=== PATIENT | female | born 1985 | race African-American/Black ===

== ENCOUNTER 2017-08-11 14:46 | Emergency (ER) | payer OTHER ==
[2017-08-11 14:49] VITALS: BP 141/93; PULSE 79; TEMP 98.8; BMI 23.3
[2017-08-11] MEDS ORDERED: METOCLOPRAMIDE HCL INJECTION 10 MG/2 ML VIAL IVPUSH ONE (15:19)
[2017-08-11] MEDS ORDERED: SODIUM CHLORIDE 0.9% 1000 ML INFUS.BAG IV ONE (15:19)
[2017-08-11] MEDS ORDERED: KETOROLAC TROMETHAMINE 15 MG/ML VIAL IVPUSH ONE (15:19)
[2017-08-11] MEDS ORDERED: METOCLOPRAMIDE HCL INJECTION 10 MG/2 ML VIAL ONE (15:40)
[2017-08-11] MEDS ORDERED: KETOROLAC TROMETHAMINE 15 MG/ML VIAL ONE (15:40)
--- NOTE | 2017-08-11 15:42 | PDOC ---
History of Present Illness - General Chief Complaint: Migraine Headache Stated Complaint: Migraine Headache Time Seen by Provider: 08/11/17 14:58 - History of Present Illness Initial Comments: 08/11/17 15:22 CHIEF COMPLAINT: headache HISTORY OF PRESENT ILLNESS: 32 yo F with hx of migraines presents to [facility] with migraine x 4 days. Patient states she used to have migraines and [place] and then [place]ra[place] stopped. She states she didn't have migraines since 2006 until this past month, and now has had multiple in the past few weeks. She reports one episode of migraine in which she felt weak and "couldn't leave the house" because light made my head hurt so bad. No recent travel or sick contacts. PAST MEDICAL HISTORY: Denies past medical history FAMILY HISTORY: Denies SOCIAL HISTORY: Denies tobacco, alcohol, illicit drug use. SURGICAL HISTORY: Denies ALLERGIES: No known drug allergies REVIEW OF SYSTEMS General/Constitutional: Denies fever or chills. Denies weakness, weight change. HEENT: Photophobia. Denies ear pain or discharge. Denies sore throat. Cardiovascular: Denies chest pain or shortness of breath. Respiratory: Denies cough, wheezing, or hemoptysis. Gastrointestinal: Denies nausea, vomiting, diarrhea or constipation. Denies rectal bleeding. Genitourinary: Denies dysuria, frequency, or change in urination. Musculoskeletal: Denies joint or muscle swelling or pain. Denies neck or back pain. Skin and breasts: Denies rash or easy bruising. Neurologic: Recurrent migraines. Denies vertigo, loss of consciousness, or loss of sensation. PHYSICAL EXAM General Appearance: Well-appearing, appropriately dressed. No apparent distress. HEENT: EOMI, PERRLA, normal ENT inspection, normal voice, TMs normal, pharynx normal. No conjunctival pallor. No photophobia, scleral icterus. Respiratory/Chest: Lungs CTAB. Cardiovascular: RRR. S1, S2. Musculoskeletal/Extremities: Normal inspection. FROM of all extremities, normal capillary refill. Pelvis Stable. No CVA tenderness. No tenderness to extremities, pedal edema, swelling, erythema or deformity. Integumentary: Appropriate color, dry, warm. No cyanosis, erythema, jaundice or rash Neurologic: peoplesoft developer II-XII intact. Fully oriented, alert. Appropriate mood/affect. Motor strength 5/5. No appreciable EOM palsy, facial droop or sensory deficit. A&Ox3, follow commands, respond appropriately CN2-12: conjugate gaze, pupil round, equal and reactive to light. Visual field full to confrontation. EOMI without nystagmus, pursuit is smooth without saccade. Facial sensation and muscle activation intact bilaterally. Hearing intact bilaterally. Palate elevate symmetrically. Shoulder shrug and neck turn full strength. Tongue protrude midline. Motor: UE and LE strength 5/5 throughout bilaterally. Muscle tone and bulk normal. Cerebellar: Rapid-alternating movement with regular rhythm without bradykinesia. Finger-nose test abnormal with overshoot. Gait narrow based. No shuffling. Full hip flexion and knee flexion. Negative Romberg No involuntary movement noted. No pronator drift. No clonus. Past History - Past Medical History Allergies/Adverse Reactions: Allergies Allergy/AdvReac Type Severity Reaction Status Date / Time aspirin Allergy Severe Difficulty Verified 08/11/17 14:49 Breathing NUTS Allergy Severe Difficulty Uncoded 08/11/17 14:49 Breathing Home Medications: Ambulatory Orders Acetaminophen/Caffeine [Excedrin Tension Headache Cplt] 1 each PO TID PRN #21 tablet 08/11/17 Anemia: Yes Asthma: Yes Cancer: No Cardiac Disorders: Yes (sinus tachycardia) CVA: No Dementia: No Diabetes: No GI Disorders: No Disorders: No HTN: No Hypercholesterolemia: No Liver Disease: No Seizures: No Thyroid Disease: No Other medical history: MIGRAINES - Surgical History Cholecystectomy: Yes - Reproductive History (#): 3 Para: 1 Cervical CA: No Dysfunctional Uterine Bleeding: No Ectopic : No Endometrial CA: No Polycystic Ovaries: No Tubal Ligation: No Spontaneous : 1 - Immunization History Immunization Up to Date: No - Suicide/Smoking/Psychosocial Hx Smoking Status: No Smoking History: Never smoked Have you smoked in the past 12 months: No Number of Cigarettes Smoked Daily: 0 Hx Alcohol Use: No Drug/Substance Use Hx: No Substance Use Type: None Hx Substance Use Treatment: No *Physical Exam - Vital Signs Last Vital Signs Temp Pulse Resp BP Pulse Ox 98.8 F 79 18 141/93 100 08/11/17 14:46 08/11/17 14:46 08/11/17 14:46 08/11/17 14:46 08/11/17 14:46 Medical Decision Making - Medical Decision Making 08/11/17 15:42 32 yo F with hx of migraines presents to [facility] with migraine x 4 days. -UPreg -IVF, Toradol, Reglan, Benadryl 08/11/17 16:42 Patient reassessed; states she is feeling better at this time and is comfortable going home. Neuro exam unremarkable at this time. *DC/Admit/Observation/Transfer Diagnosis at time of Disposition: Migraine Qualifiers: Migraine type: unspecified Status migrainosus presence: without status migrainosus Intractability: not intractable Qualified Code(s): G43.909 - Migraine, unspecified, not intractable, without status migrainosus - Discharge Dispostion Disposition: HOME Condition at time of disposition: Improved Admit: No - Prescriptions Prescriptions: Acetaminophen/Caffeine [Excedrin Tension Headache Cplt] 1 each PO TID PRN #21 tablet PRN Reason: Headache - Referrals Referrals: Sheldon Sow MD [Primary Care Provider] - Dionicio Pierre MD [Staff Physician] - - Patient Instructions Printed Discharge Instructions: DI for Migraine Additional Instructions: Please take medications as prescribed. As discussed, you need to follow up with neurology for further evaluation of your recurrent headaches. If you develop any new headache that feels different from your migraines, or you feel a "thunderclap" headache, or you develop any change in vision, have weakness to one side, have any difficulty speaking or swallowing, or develop any new or worsening symptoms, please return to the ER immediately. - Post Discharge Activity Forms/Work/School Notes: Back to Work
== END 2017-08-11 16:34 | disposition home or self-care (01) ==
LOC: JERFT 14:46
PROC: 3E0333Z Introduction of Anti-inflammatory into Peripheral Vein, Percutaneous Approach (ICD-10-PCS; principal; 2017-08-11)
PROC: 3E033GC Introduction of Other Therapeutic Substance into Peripheral Vein, Percutaneous Approach (ICD-10-PCS; 2017-08-11)
PROC: 3E033GC Introduction of Other Therapeutic Substance into Peripheral Vein, Percutaneous Approach (ICD-10-PCS; 2017-08-11)
DX: G43.909 Migraine, unspecified, not intractable, without status migrainosus (principal)
CPT/HCPCS: 84703; 99281-25

== ENCOUNTER 2018-06-22 07:36 | Day surgery (SDC) | payer BC ==
[2018-06-21 15:53] VITALS: BMI 23.3
[~2018-06-22 07:36] MED LIST: ceFAZolin SODIUM 1 GM VIAL IVPB ONE
[2018-06-22] MEDS ORDERED: SODIUM CHLORIDE 0.9% P/F 10 ML VIAL IJ ONE ×2 (08:32→09:51)
[2018-06-22] MEDS ORDERED: ceFAZolin SODIUM 1 GM VIAL ONE ×2 (08:32→09:51)
[2018-06-22] MEDS ORDERED: PROPOFOL 20 ML ONE ×3 (08:41→10:09)
--- NOTE | 2018-06-22 09:10 | HP ---
Satellite [facility] - Chief Complaint Chief Complaint: left wrist pain - Past Medical History Allergies/Adverse Reactions: Allergies Allergy/AdvReac Type Severity Reaction Status Date / Time aspirin Allergy Severe Difficulty Verified 06/22/18 08:37 Breathing NUTS Allergy Severe Difficulty Uncoded 06/22/18 08:37 Breathing ...LMP: 06/02/18 Heme/Onc: Yes: Anemia - Current Medications Current Medications: Home Medications Medication Instructions Recorded Ascorbic Acid [Vitamin C] 1,000 mg PO DAILY 06/21/18 Metoprolol Succinate [Toprol Xl] 12.5 mg PO HS 06/21/18 Salmeterol/Fluticasone [Advair 1 inh PO BID 06/21/18 100Mcg/50Mcg -] Hydrocodone/Acetaminophen [[place] 1 each PO Q6H PRN #20 tablet MDD 4 06/22/18 5-325 Tablet] Satellite Physical Exam - Physical Examination Vital Signs: Vital Signs Period Temp Pulse Resp BP Sys/Bronson Pulse Ox Last 24 Hr 99.5 F-99.5 F 94-94 20-20 114-114/79-79 100 General Appearance: Well Nourished, Well Developed, Alert & Oriented x3 ENT: Clear Lung: Normal air movement Heart: Regular rate & rhythm Extremities: Other (left wrist- + ttp first dorsal compartment, + finkelsteins, nvi) Neurological: Intact, Alert, Oriented Satellite Impression/Plan - Impression/Plan Impression: left dequervains tenosynovitis Operative Procedure: left dequervains release Date to be Performed: 06/22/18
[2018-06-22] MEDS ORDERED: LIDOCAINE HCL 2% (20ML MULTI-DOSE VIAL) NR ONE (09:11)
[2018-06-22] MEDS ORDERED: MIDAZOLAM HCL 2 MG/2 ML SINGLE DOSE VIAL ONE (09:23)
[2018-06-22] MEDS ORDERED: ceFAZolin SODIUM 1 GM VIAL IVPB ONE (09:37)
[2018-06-22] MEDS ORDERED: BUPIVACAINE HCL/PF 0.5% (5MG/ML) 10 ML VIAL IJ ONE (09:45)
[2018-06-22] MEDS ORDERED: LIDOCAINE HCL 1%, 10 MG/ML (50 mL VIAL) IJ ONE (09:45)
[2018-06-22] MEDS ORDERED: METOPROLOL TARTRATE 5 MG/5 ML VIAL ONE (09:47)
[2018-06-22] MEDS ORDERED: DEXAMETHASONE SOD PHOSPHATE 4 MG/1 ML VIAL ONE (09:52)
--- NOTE | 2018-06-22 10:17 | OP ---
Operative Note - Note: Operative Date: 06/22/18 ([facility]) Pre-Operative Diagnosis: left dequervains tenosynovitis Operation: left dequervains release, tenosynovectomy Post-Operative Diagnosis: Same as Pre-op Surgeon: Colt Greco Anesthesia: Local, MAC Specimens Removed: tenosynovium Estimated Blood Loss (mls): 0 (tourniquet) Operative Report Dictated: Yes
[2018-06-22 12:36] VITALS: TEMP 98.3
[2018-06-22 14:13] VITALS: BP 123/71; PULSE 73
--- NOTE | 2018-06-22 15:45 | SPEC ---
DATE OF OPERATION: 06/22/2018 PREOPERATIVE DIAGNOSIS: Left De Quervains tenosynovitis. POSTOPERATIVE DIAGNOSIS: Left De Quervains tenosynovitis. PROCEDURE: Left De Quervains release and tendon sheath excision. SURGEON: Enio Hummel M.D. POULTRY PATHOLOGIST: Howie. ANESTHESIA: MAC with local injection of 15 mL of 0.5% Marcaine and 1% Lidocaine mix. ANESTHESIOLOGIST: Zane Basurto MD DRAINS: None. COMPLICATIONS: None. BLOOD LOSS: None. BLOOD GIVEN: None. SPECIMEN: Tendon sheath, left wrist. INDICATIONS: This patient is a 32-year-old female with preoperative diagnosis of recurrent severe left De Quervain's tenosynovitis. After understanding the potential risks, complications, alternatives and benefits of surgery versus nonsurgical treatment, the patient elected to undergo this procedure. PROCEDURE: Patient was brought to the operating room, peripheral IV placed, IV sedation given. One gram of IV Ancef was given. MAC anesthesia was induced. The tourniquet was applied to the left arm. The entire care was done under 3.8 loop magnification. The left upper extremity was prepped and draped in a sterile fashion. A longitudinal incision was marked out with a marking pen. A mix of 10 mL of 0.5% Marcaine, 1% Lidocaine were injected in and around the surgical area. The left upper extremity was then elevated, exsanguinated with an Esmarch bandage and the tourniquet inflated to 250 mmHg. A No. 15 scalpel blade was utilized to make a longitudinal incision. Subcutaneous hemostasis was achieved with a bipolar cautery. Dissection was done with a Littler scissors down to the first dorsal wrist compartment. Great care was taken to directly visualize and preserve all crossing sensory branches of the sensory nerve. Under direct visualization, the first dorsal wrist compartment was visualized and it was freed up from some adhesions with a [place] elevator. Next, a fresh No. 15 scalpel blade was utilized to open up the first dorsal wrist compartment, starting proximally and going distally both with the No. 15 scalpel blade and also with a Littler scissors. The anatomy was seen to have multiple slips of the abductor pollicis longus and the extensor pollicis brevis was in its own tendon tunnel. This was also released and the wall between the two excised. The roof of the tunnel was excised. This was all passed off the field as specimen. The volar lip of the first dorsal wrist compartment was preserved to prevent volar subluxation. The release was completed both distally and proximally in both compartments. I was able to bring out all slips through the wound with a Ragnell retractor and there were no obvious points of compression. The area was copiously irrigated and washed out, again explored and I didn't see any other abnormal tissue and therefore closure was begun. Undyed 4-0 Vicryl was used to close the deep dermal layer. Final skin reapproximation was done with a running subcuticular 4-0 Biosyn stitch. The area was then washed and dried, covered with Steri-Strips, 4 x 4's, fluffs between the fingers, Webril and Coban used to make a thumb spica Coban splint. The tourniquet was taken down after a total tourniquet time of 20 minutes. There were no complications during the case. The patient tolerated the procedure quite well and was brought to ambulatory recovery room in stable condition. ENIO HUMMEL M.D. [id number]
--- NOTE | 2018-06-24 13:37 | PATH ---
Surgical Pathology Report Patient Name: ISIDRO RIOS [facility]. Rec. #: [id number] /Age/Gender: 1985 (Age: 33) / F Account: [id number] Location: [facility] SURGICAL Taken: 06/22/2018 Received: 06/22/2018 Reported: 06/24/2018 Physicians: Colt Greco M.D. Specimen(s) Received LEFT HAND TENOSYNOVIAL FLUID Clinical History Left de Quervain's Final Diagnosis TENOSYNOVIUM, HAND, LEFT, DE QUERVAIN'S RELEASE: SCANT BENIGN DENSE FIBROCONNECTIVE TISSUE. Electronically Signed Rosina Quintero M.D. Gross Description Received in formalin labeled "left hand tenosynovial fluid," is a 1.3 x 1.1 x 0.2 cm aggregate of villarreal-yellow portions of soft tissue, consistent with tenosynovium. The specimen is entirely submitted in one cassette. /06/22/2018 saudi06/22/2018
== END 2018-06-22 14:10 | disposition home or self-care (01) ==
LOC: JASU-SURG 07:36
PROVIDERS: ATTEND Orthopaedic Surgery
PROC: 0LN60ZZ Release Left Lower Arm and Wrist Tendon, Open Approach (ICD-10-PCS; principal; 2018-06-22 09:00)
DX: M65.4 Radial styloid tenosynovitis [de Quervain] (principal)
CPT/HCPCS: 84703; 88304-TC; 94760

== ENCOUNTER 2018-07-13 08:48 | Day surgery (SDC) | payer BC, OTHER ==
[2018-07-12 10:44] VITALS: BMI 23.3
[2018-07-13] MEDS ORDERED: DEXAMETHASONE SOD PHOSPHATE/PF 10 MG/ML SDV ONE (09:00)
[2018-07-13] MEDS ORDERED: ROPIVACAINE HCL 0.5% 30ML VIAL ONE (09:00)
[2018-07-13] MEDS ORDERED: MIDAZOLAM HCL 2 MG/2 ML SINGLE DOSE VIAL ONE ×2 (09:01)
[2018-07-13] MEDS ORDERED: ONDANSETRON 4 MG/2 ML VIAL IVPUSH PRN (10:51)
[2018-07-13] MEDS ORDERED: oxyCODONE HCL 5 MG TABLET PO PRN (10:51)
[2018-07-13] MEDS ORDERED: LACTATED RINGERS SOLUTION 1,000 ML IV SCH (11:00)
--- NOTE | 2018-07-13 11:02 | HP ---
Satellite [facility] - Chief Complaint Chief Complaint: right shoulder pain History of Present Illness: right shoulder impingement syndrome History Source: Patient Limitations to Obtaining History: No Limitations - Past Medical History Allergies/Adverse Reactions: Allergies Allergy/AdvReac Type Severity Reaction Status Date / Time aspirin Allergy Severe Difficulty Verified 07/13/18 09:23 Breathing NUTS Allergy Severe Difficulty Uncoded 07/13/18 09:23 Breathing ...LMP: 06/27/18 Heme/Onc: Yes: Anemia - Current Medications Current Medications: Home Medications Medication Instructions Recorded Ascorbic Acid [Vitamin C] 1,000 mg PO DAILY 06/21/18 Metoprolol Succinate [Toprol Xl] 12.5 mg PO HS 06/21/18 Salmeterol/Fluticasone [Advair 1 inh PO BID 06/21/18 100Mcg/50Mcg -] Hydrocodone/Acetaminophen [[place] 1 each PO Q6H PRN #20 tablet MDD 4 06/22/18 5-325 Tablet] Satellite Physical Exam - Physical Examination Vital Signs: Vital Signs Period Temp Pulse Resp BP Sys/Bronson Pulse Ox Last 24 Hr 99 F 75 18 123/73 100 General Appearance: Well Nourished ENT: Clear Lung: Clear to auscultation Heart: Regular rate & rhythm Breasts: Soft Abdomen: Soft Extremities: No edema Satellite Impression/Plan - Impression/Plan Impression: right shoulder impingement syndrome Operative Procedure: right shoulder arthroscopy, decompression Date to be Performed: 07/13/18
[2018-07-13] MEDS ORDERED: PROPOFOL 20 ML ONE ×3 (11:06→11:51)
[2018-07-13] MEDS ORDERED: ROCURONIUM BROMIDE 50 MG/5 ML VIAL ONE (11:06)
[2018-07-13] MEDS ORDERED: DEXAMETHASONE SOD PHOSPHATE 4 MG/1 ML VIAL ONE ×2 (11:07→12:10)
[2018-07-13] MEDS ORDERED: ceFAZolin SODIUM 1 GM VIAL ONE ×2 (11:07→12:10)
[2018-07-13] MEDS ORDERED: SODIUM CHLORIDE 0.9% P/F 10 ML VIAL IJ ONE ×2 (11:07→12:10)
[2018-07-13] MEDS ORDERED: ceFAZolin SODIUM 1 GM VIAL IVPB ONE (11:35)
[2018-07-13] MEDS ORDERED: LIDOCAINE HCL/PF 2% SDV 5ML VIAL ONE (12:12)
[2018-07-13] MEDS ORDERED: GLYCOPYRROLATE 0.2 MG/1 ML VIAL ONE ×2 (12:43)
[2018-07-13] MEDS ORDERED: NEOSTIGMINE METHYLSULFATE 0.5 MG/ML - 10 ML MDV ONE (12:43)
--- NOTE | 2018-07-13 13:20 | OP ---
DATE OF OPERATION: 07/13/2018 PREOPERATIVE DIAGNOSIS: Left shoulder impingement syndrome. POSTOPERATIVE DIAGNOSIS: Left shoulder impingement syndrome. PROCEDURE: Left shoulder arthroscopy, subacromial decompression and distal clavicle excision. SURGEON: Enio Hummel MD SUPPLY TECH: None. ANESTHESIA: Jorge Baumann CRNA and Torsten Martin MD; left interscalene block and LMA anesthesia. DRAINS: None. BLOOD LOSS: Minimal. BLOOD GIVEN: None. FLUID REPLACEMENT: 700 mL. This patient is a 33-year-old female with a preoperative diagnosis of left shoulder impingement syndrome. After understanding the potential risks, complications, alternatives and benefits of surgical versus nonsurgical treatment the patient elected to undergo this procedure. The patient was brought to the operating room. Peripheral IV placed and IV sedation given. Ancef 1 g IV was given. A left interscalene block was performed. Ample padding was applied. She was placed into the beach chair position. The left upper extremity was prepped and draped in a sterile fashion. The bony landmarks were marked out with a marking pen. The posterior portal was established. Diagnostic glenohumeral arthroscopy was performed. All the intraarticular structures were normal. Next our attention turned to the subacromial space. There was a lot of inflammatory bursitis. A lateral portal was established under direct visualization using a spinal needle and a Green cannula introduced into the subacromial space. An ArthroCare wand was used to do a soft tissue bursectomy. After this extensive bursectomy/extensive debridement this revealed a large subacromial and subclavicular bony spur. These were both taken down with a 5.5-mm oval bur and fine tuned in reverse and then using the shaver to fine tune it further to remove all bony and soft tissue debris. The distal clavicular spur was also shaved down and fine tuned with the shaver. The top surface of the rotator cuff was directly visualized. Putting the arm through motion in all planes there was no rotator cuff tear. It looked pristine. The knee was copiously irrigated and washed out. All instrumentation removed. All excess saline and debris were removed. The arthroscopy portals were closed with 3-0 nylon sutures. The area was then washed and dried, covered with an Aquacel dressing. Total operative time was about 50 minutes. There were no complications during the case. Patient tolerated the procedure quite well and was brought to the ambulatory recovery room in stable condition. ENIO HUMMEL M.D. [id number]
[2018-07-13 15:55] VITALS: TEMP 98.1
[2018-07-13] MEDS ORDERED: oxyCODONE HCL 5 MG TABLET ONE (16:06)
[2018-07-13] MEDS ORDERED: oxyCODONE HCL 5 MG TABLET PO ONE (17:15)
[2018-07-13 18:18] VITALS: BP 136/73; PULSE 94
--- NOTE | 2018-07-14 15:15 | PATH ---
Surgical Pathology Report Patient Name: ISIDRO RIOS Med. Rec. #: [id number] /Age/Gender: 1985 (Age: 33) / F Account: [id number] Location: [facility] SURGICAL Taken: 07/13/2018 Received: 07/13/2018 Reported: 07/14/2018 Physicians: Colt Greco M.D. Specimen(s) Received LEFT SHOULDER SHAVINGS Clinical History Impingement syndrome of left shoulder Final Diagnosis SHOULDER SHAVINGS, LEFT, ARTHROSCOPY WITH SUBACROMIAL DECOMPRESSION: FRAGMENTS OF BENIGN CARTILAGE, DENSE FIBROCONNECTIVE TISSUE, ADIPOSE TISSUE, AND SKELETAL MUSCLE. Electronically Signed Rosina Quintero M.D. Gross Description Received in formalin, labeled "left shoulder shavings," is a 5.0 x 4.4 x 0.6 cm. aggregate of villarreal-yellow soft tissue fragments. A patient services representative portion is submitted in one cassette. /07/13/2018 saudi/07/13/2018
== END 2018-07-13 18:10 | disposition home or self-care (01) ==
LOC: JASU-SURG 08:48
PROVIDERS: ATTEND Orthopaedic Surgery
PROC: 0RNK4ZZ Release Left Shoulder Joint, Percutaneous Endoscopic Approach (ICD-10-PCS; 2018-07-13)
PROC: 0PBB4ZZ Excision of Left Clavicle, Percutaneous Endoscopic Approach (ICD-10-PCS; principal; 2018-07-13 10:00)
DX: M75.42 Impingement syndrome of left shoulder (principal)
CPT/HCPCS: 84703; 88304-TC

== ENCOUNTER 2024-05-23 04:14 | Day surgery (SDC) | payer BC, OTHER ==
[2024-05-22 09:47] VITALS: BMI 26.4
[2024-05-23] MEDS ORDERED: ACETAMINOPHEN 500 MG TABLET (FP) ONE (08:44)
[2024-05-23] MEDS: ACETAMINOPHEN 500 MG TABLET (FP) PO ONE (09:00)
[2024-05-23] MEDS ORDERED: PROPOFOL 20 ML ONE (11:55)
[2024-05-23] MEDS ORDERED: MIDAZOLAM HCL 2 MG/2 ML SINGLE DOSE VIAL ONE (11:55)
[2024-05-23] MEDS ORDERED: SUCCINYLCHOLINE CHLORIDE 200 MG/10 ML SYRINGE ONE (11:56)
[2024-05-23] MEDS ORDERED: ceFAZolin SODIUM 1 GM VIAL ONE (11:56)
[2024-05-23] MEDS ORDERED: ONDANSETRON 4 MG/2 ML VIAL ONE (11:56)
[2024-05-23] MEDS ORDERED: DEXAMETHASONE SOD PHOSPHATE 4 MG/1 ML VIAL ONE (11:56)
[2024-05-23] MEDS ORDERED: KETOROLAC TROMETHAMINE 30 MG/1 ML VIAL ONE ×2 (11:56→14:42)
[2024-05-23] MEDS: ceFAZolin SODIUM 1 GM VIAL IVPB ONE (12:27)
[2024-05-23] MEDS ORDERED: ONDANSETRON 4 MG/2 ML VIAL IVPUSH PRN ×2 (12:57→13:05)
[2024-05-23] MEDS ORDERED: IBUPROFEN 600 MG TABLET (FP) PO PRN (12:57)
[2024-05-23] MEDS ORDERED: IBUPROFEN 800 MG/8 ML IJ IVPB PRN (12:57)
[2024-05-23] MEDS ORDERED: ELECTROLYTE-148 SOLN 1,000 ML IV SCH (13:00)
[2024-05-23] MEDS ORDERED: LACTATED RINGERS SOLUTION 1,000 ML IV SCH (13:15)
[2024-05-23] MEDS ORDERED: HYDROmorphone HCL CARPU-JECT 2 MG/1 ML DISP.SYRIN ONE (14:47)
[2024-05-23] MEDS: HYDROmorphone HCl 2 MG/ML VIAL IVPUSH PRN (14:52)
[2024-05-23 17:11] VITALS: PULSE 96; RESP 18; TEMP 97.7
[2024-05-23] MEDS ORDERED: oxyCODONE HCL 5 MG TABLET ONE (17:13)
[2024-05-23] MEDS: oxyCODONE HCL 5 MG TABLET PO PRN (17:18)
[2024-05-23 18:48] VITALS: BP 136/84
== END 2024-05-23 18:30 | disposition home or self-care (01) ==
LOC: JASU-SURG 04:14
PROVIDERS: ATTEND Obstetrics & Gynecology
PROC: 0U5B8ZZ Destruction of Endometrium, Via Natural or Artificial Opening Endoscopic (ICD-10-PCS; principal; 2024-05-23 09:00)
DX: N92.1 Excessive and frequent menstruation with irregular cycle (principal); D25.9 Leiomyoma of uterus, unspecified; D64.9 Anemia, unspecified
CPT/HCPCS: 94760